=== PATIENT | female | born 1970 | race Caucasian/White ===

== ENCOUNTER 2022-06-13 11:13 | Day surgery (SDC) | payer OTHER ==
[2022-06-13] MEDS ORDERED: ROMOSOZUMAB AQQG 210 MG/2.34 ML SQ SCH (11:30)
== END 2022-06-13 12:14 | disposition home or self-care (01) ==
LOC: ONC/OP 11:13
PROVIDERS: ATTEND Internal Medicine
DX: M81.0 Age-related osteoporosis without current pathological fracture (principal); Z88.2 Allergy status to sulfonamides
CPT/HCPCS: 96372; J3111

== ENCOUNTER 2022-08-16 10:10 | Day surgery (SDC) | payer OTHER ==
[~2022-08-16 10:10] MED LIST: ROMOSOZUMAB AQQG 210 MG/2.34 ML SQ SCH
[2022-08-16 12:22] VITALS: BP 97/48; TEMP 97.6
== END 2022-08-16 12:23 | disposition home or self-care (01) ==
LOC: ONC/OP 10:10
PROVIDERS: ATTEND Internal Medicine
DX: M81.0 Age-related osteoporosis without current pathological fracture (principal); Z88.2 Allergy status to sulfonamides
CPT/HCPCS: 96372; J3111

== ENCOUNTER 2022-09-08 10:22 | Day surgery (SDC) | payer OTHER ==
[2022-09-07 13:32] VITALS: BMI 18.3
[2022-09-08] MEDS ORDERED: Bacitracin Zinc Ointment 30 gm TUBE ONE (11:15)
[2022-09-08] MEDS ORDERED: Lidocaine 1% (PF) 30 ML VIAL ONE (11:15)
[2022-09-08] MEDS ORDERED: EPINEPHrine 1 MG/ML AMP ONE (11:15)
[2022-09-08] MEDS ORDERED: fentaNYL PF 100 MCG/2 ML SYRINGE ONE ×3 (11:17→11:33)
[2022-09-08] MEDS ORDERED: Ciprofloxacin 0.2% Otic (0.25ML CONTAINER) ONE (11:31)
[2022-09-08] MEDS ORDERED: SUGAMMADEX SODIUM 200 MG/2 ML VIAL ONE (11:34)
[2022-09-08] MEDS ORDERED: Dexamethasone 20 MG/5 ML VIAL ONE (12:34)
[2022-09-08] MEDS ORDERED: ePHEDrine 50 MG/ML VIAL ONE (12:34)
[2022-09-08] MEDS ORDERED: diphenhydrAMINE 50 MG/ML VIAL ONE (12:34)
[2022-09-08] MEDS ORDERED: NEOSTIGMINE 3 MG/3 ML SYR 3 MG/3 ML SYRINGE ONE (12:34)
[2022-09-08] MEDS ORDERED: Lidocaine 1% PF 5 ML VIAL ONE (12:34)
[2022-09-08] MEDS ORDERED: Rocuronium Bromide 10 MG/ML (10ML VIAL) ONE (12:34)
[2022-09-08] MEDS ORDERED: PHENYLEPHRINE-NS 100 MCG/ML 10 ML SYRINGE ONE (12:34)
[2022-09-08] MEDS ORDERED: Glycopyrrolate 0.2 MG/ML 5 ML SYRINGE ONE (12:34)
[2022-09-08] MEDS ORDERED: PROPOFOL 200 MG/20 ML VIAL ONE (12:34)
[2022-09-08] MEDS ORDERED: Promethazine HCl 25 MG/ML VIAL ONE (14:51)
[2022-09-08] MEDS ORDERED: Ondansetron PF 4 MG/2 ML Vial ONE (15:39)
[2022-09-08] MEDS ORDERED: Acetaminophen/Codeine 30-300mg Tablet ONE (16:52)
== END 2022-09-08 17:17 | disposition home or self-care (01) ==
LOC: SDC 10:22
PROVIDERS: ATTEND Specialist
PROC: 09U887Z Supplement Left Tympanic Membrane with Autologous Tissue Substitute, Via Natural or Artificial Opening Endoscopic (ICD-10-PCS; principal; 2022-09-08)
DX: H72.92 Unspecified perforation of tympanic membrane, left ear (principal); H90.12 Conductive hearing loss, unilateral, left ear, with unrestricted hearing on the contralateral side; H74.12 Adhesive left middle ear disease; H69.82 Other specified disorders of Eustachian tube, left ear; K51.90 Ulcerative colitis, unspecified, without complications; M81.0 Age-related osteoporosis without current pathological fracture; L21.9 Seborrheic dermatitis, unspecified; Z79.620 Long term (current) use of immunosuppressive biologic; Z79.622 Long term (current) use of Janus kinase inhibitor; Z79.899 Other long term (current) drug therapy; Z88.2 Allergy status to sulfonamides; Z91.018 Allergy to other foods; Z91.048 Other nonmedicinal substance allergy status
CPT/HCPCS: J0171; J1100; J1200; J2001; J2405; J2550; J2704; J3490

== ENCOUNTER 2022-09-19 11:20 | Day surgery (SDC) | payer OTHER ==
[~2022-09-19 11:20] MED LIST changes: -ROMOSOZUMAB AQQG 210 MG/2.34 ML SQ SCH; +ROMOSOZUMAB-AQQG 210 MG/2.34 ML SYR SQ SCH
[2022-09-19 11:50] VITALS: BP 94/50; TEMP 97.2
== END 2022-09-19 11:52 | disposition home or self-care (01) ==
LOC: ONC/OP 11:20
PROVIDERS: ATTEND Internal Medicine
DX: M81.0 Age-related osteoporosis without current pathological fracture (principal); Z88.2 Allergy status to sulfonamides; Z88.8 Allergy status to other drugs, medicaments and biological substances; Z91.018 Allergy to other foods
CPT/HCPCS: 96372; J3111

== ENCOUNTER 2022-10-17 11:13 | Day surgery (SDC) | payer OTHER ==
[2022-10-17 12:13] VITALS: TEMP 98.2
[2022-10-17 12:22] VITALS: BP 101/54
== END 2022-10-17 12:22 | disposition home or self-care (01) ==
LOC: ONC/OP 11:13
PROVIDERS: ATTEND Internal Medicine
DX: M81.0 Age-related osteoporosis without current pathological fracture (principal); Z88.2 Allergy status to sulfonamides; Z88.8 Allergy status to other drugs, medicaments and biological substances; Z91.018 Allergy to other foods
CPT/HCPCS: 96372; J3111

== ENCOUNTER 2022-11-14 11:09 | Day surgery (SDC) | payer OTHER ==
[2022-11-14 13:51] VITALS: BP 95/52; TEMP 98
== END 2022-11-14 11:30 | disposition home or self-care (01) ==
LOC: ONC/OP 11:09
PROVIDERS: ATTEND Internal Medicine
DX: M81.0 Age-related osteoporosis without current pathological fracture (principal); Z88.2 Allergy status to sulfonamides; Z88.8 Allergy status to other drugs, medicaments and biological substances; Z91.018 Allergy to other foods
CPT/HCPCS: 96372; J3111

== ENCOUNTER 2022-12-12 14:08 | Day surgery (SDC) | payer OTHER ==
[2022-12-12 14:44] VITALS: BP 105/51; TEMP 98
== END 2022-12-12 14:36 | disposition home or self-care (01) ==
LOC: ONC/OP 14:08
PROVIDERS: ATTEND Internal Medicine
DX: M81.0 Age-related osteoporosis without current pathological fracture (principal); Z88.2 Allergy status to sulfonamides; Z88.8 Allergy status to other drugs, medicaments and biological substances; Z91.018 Allergy to other foods
CPT/HCPCS: 96401; J3111

== ENCOUNTER 2023-02-03 13:51 | Day surgery (SDC) | payer OTHER ==
[2023-02-03 14:36] VITALS: BP 90/55; TEMP 98.1
== END 2023-02-03 14:36 | disposition home or self-care (01) ==
LOC: ONC/OP 13:51
PROVIDERS: ATTEND Internal Medicine
DX: M81.0 Age-related osteoporosis without current pathological fracture (principal); Z88.2 Allergy status to sulfonamides; Z91.018 Allergy to other foods; Z91.048 Other nonmedicinal substance allergy status
CPT/HCPCS: 96372; J3111

== ENCOUNTER 2023-03-03 14:02 | Day surgery (SDC) | payer OTHER ==
[2023-03-03 14:17] VITALS: BP 95/51; TEMP 97.9
== END 2023-03-03 14:25 | disposition home or self-care (01) ==
LOC: ONC/OP 14:02
PROVIDERS: ATTEND Internal Medicine
DX: M81.0 Age-related osteoporosis without current pathological fracture (principal); Z88.2 Allergy status to sulfonamides; Z91.018 Allergy to other foods; Z91.048 Other nonmedicinal substance allergy status
CPT/HCPCS: 96372; J3111

== ENCOUNTER 2023-04-03 14:38 | Day surgery (SDC) | payer OTHER ==
[2023-04-03 14:58] VITALS: BP 100/53; TEMP 98.1
== END 2023-04-03 15:04 | disposition home or self-care (01) ==
LOC: ONC/OP 14:38
PROVIDERS: ATTEND Internal Medicine
DX: M81.0 Age-related osteoporosis without current pathological fracture (principal); Z88.2 Allergy status to sulfonamides; Z91.018 Allergy to other foods; Z91.048 Other nonmedicinal substance allergy status
CPT/HCPCS: 96372; J3111

== ENCOUNTER 2023-05-01 14:08 | Day surgery (SDC) | payer OTHER ==
[2023-05-01 14:27] VITALS: BP 100/55; TEMP 97.9
== END 2023-05-01 14:27 | disposition home or self-care (01) ==
LOC: ONC/OP 14:08
PROVIDERS: ATTEND Internal Medicine
DX: M81.0 Age-related osteoporosis without current pathological fracture (principal); Z88.2 Allergy status to sulfonamides; Z91.018 Allergy to other foods; Z91.048 Other nonmedicinal substance allergy status
CPT/HCPCS: 96372; J3111

== ENCOUNTER 2023-06-16 15:35 | Outpatient (CLI) | payer OTHER | END 2023-06-16 15:36 | disposition home or self-care (01) | LOC: BICMAMMO 15:35 | PROVIDERS: ATTEND Internal Medicine | DX: M81.0 Age-related osteoporosis without current pathological fracture (principal); M85.88 Other specified disorders of bone density and structure, other site | CPT/HCPCS: 77080 ==